=== PATIENT | male | born 1965 | race American Indian/Alaskan Native ===

== ENCOUNTER 2017-01-22 21:31 | Emergency (ER) | payer BC, OTHER ==
[2017-01-22 21:41] VITALS: BP 145/90; PULSE 62; RESP 17; TEMP 97.3; O2SAT 100
--- NOTE | 2017-01-22 22:18 | ED PDOC ---
Lower Extremity Pain/Injury Time Seen by Provider: 01/22/17 22:16 Chief Complaint (Nursing): Lower Extremity Problem/Injury Chief Complaint (Provider): left ankle injury History Per: Patient (51 y/o male here with ankle pain left that began while playing basketball. Notes difficulty walking . STates he heard a "pop" during game) Past Medical History Reviewed: Historical Data, Nursing Documentation, Vital Signs Vital Signs: Last Vital Signs Temp 97.3 F L 01/22/17 21:38 Pulse 62 01/22/17 21:38 Resp 17 01/22/17 21:38 BP 145/90 01/22/17 21:38 Pulse Ox 100 01/22/17 21:38 - Family History Family History: States: No Known Family Hx - Home Medications Home Medications: Ambulatory Orders Medication Instructions Recorded Naproxen 1 tab PO Q12 PRN #14 tab 01/22/17 Tramadol HCl/Acetaminophen 1 each PO Q6 PRN #10 tablet 01/23/17 [Tramadol-Acetaminophn 37.5-325] - Allergies Allergies/Adverse Reactions: Allergies Allergy/AdvReac Type Severity Reaction Status Date / Time No Known Allergies Allergy Verified 01/22/17 21:41 Review of Systems ROS Statement: Except As Marked, All Systems Reviewed And Found Negative - ECG O2 Sat by Pulse Oximetry: 100 Disposition - Clinical Impression Clinical Impression: Achilles rupture, left - Patient ED Disposition Is Patient to be Admitted: No - Disposition Referrals: Pepe Espinal MD [Staff Provider] - Disposition: Routine/Home Disposition Time: 00:14 Condition: FAIR Additional Instructions: f/u with DR JJ. Prescriptions: Naproxen 1 tab PO Q12 PRN #14 tab PRN Reason: Pain, Moderate (4-7) Tramadol HCl/Acetaminophen [Tramadol-Acetaminophn 37.5-325] 1 each PO Q6 PRN # 10 tablet PRN Reason: Pain, Moderate (4-7) Instructions: Achilles Tendon Rupture (GEN) Forms: [employer] [facility] ([place]), [facility] ED School/Work Excuse
--- NOTE | 2017-01-23 00:21 | CP.PCM.CON ---
History of Present Illness - History of Present Illness History of Present Illness: Podiatry Consult Note - Dr. Fairbanks 51 year old male patient PMHx HTN seen in ED s/p left Achilles rupture. Patient states he was at a gym playing basketball at approximately 21:00 this evening when he felt a "pop" in the back of his leg. Patient reports moderate pain in the back of his left leg; admits he was able to ambulate when he left the gym. Patient denies any treatment prior to presentation to [facility] ED. Patient states he has had several surgeries to his left leg in the past. Patient denies N/V/F/D /C/SOB/calf pain. Offers no other pedal complaints at this time. Review of Systems - Review of Systems All systems: reviewed and no additional remarkable complaints except (as per HPI ) Past Patient History - Past Social History Smoking Status: Never Smoked - CARDIAC Hx Cardiac Disorders: Yes Hx Hypertension: Yes - PSYCHIATRIC Hx Substance Use: No - SURGICAL HISTORY Hx Surgeries: Yes Other/Comment: Hx left foot surgery - ANESTHESIA Hx Anesthesia: Yes Meds Home Medications: Home Medication List Medication Instructions Recorded Confirmed Type Naproxen 1 tab PO Q12 PRN #14 tab 01/22/17 Rx Tramadol HCl/Acetaminophen 1 each PO Q6 PRN #10 tablet 01/23/17 Rx [Tramadol-Acetaminophn 37.5-325] Allergies/Adverse Reactions: Allergies Allergy/AdvReac Type Severity Reaction Status Date / Time No Known Allergies Allergy Verified 01/22/17 21:41 Physical Exam - Constitutional Appears: Well, Non-toxic, No Acute Distress - Extremities Exam Additional comments: LLE focused physical exam: VASC: DP and PT pulses palpable 2/4. CFT <3 second to all digits x5. Non- pitting edema noted to posterior 1/3 of lower leg. No increase in warmth noted to left leg. Hair growth appreciated NEURO: Gross sensation intact DERM: No open lesions noted. No ecchymosis noted. No erythema noted. ORTHO: Palpable dell approximately 3 cm proximal to the Achilles insertion, with pain on palpation. Positive Alvarado test. Muscle strength 4/5 for all dorsiflexors and plantarflexors with pain noted. Muscle strength 5/5 for all everters and inverters. Increased passive ankle joint dorsiflexion. - Neurological Exam Neurological exam: Alert, Oriented x3 - Psychiatric Exam Psychiatric exam: Normal Affect, Normal Mood Results - Vital Signs Recent Vital Signs: Last Vital Signs Temp 97.3 F L 01/22/17 21:38 Pulse 62 01/22/17 21:38 Resp 17 01/22/17 21:38 BP 145/90 01/22/17 21:38 Pulse Ox 100 01/23/17 00:20 Assessment & Plan - Assessment and Plan (Free Text) Assessment: 51 year old male PMHx HTN with left acute Achilles rupture Plan: Patient seen and evaluated in the ED Discussed in detail with attending, Dr. Fairbanks Left foot and ankle XR not taken - patient strongly refuses obtaining XR despite educating patient on ruling out other injuries Prescription given for left lower extremity MRI without contrast. Advised patient to obtain MRI prior to 1st appointment with Dr. Fairbanks. Advised patient that ability to get MRI may be difficult pending the need for prior XR. Posterior splint applied to LLE -Patient to remain NWB in posterior splint with the assistance of crutches -Advised patient to keep splint clean/dry/intact until 1st outpatient appointment Recommend RICE therapy Pain management per ED Patient is to follow up with Dr. Fairbanks in [place] office within 1 week of discharge Stable from podiatry standpoint Thank you for the consult, please reconsult podiatry as needed
== END 2017-01-23 00:46 | disposition home or self-care (01) ==
LOC: H.ER 21:31
DX: S86.012A Strain of left Achilles tendon, initial encounter (principal); X58.XXXA Exposure to other specified factors, initial encounter; Y93.67 Activity, basketball; I10 Essential (primary) hypertension